=== PATIENT | male | born 1990 | race Caucasian/White ===

== ENCOUNTER 2022-06-21 07:42 | Outpatient (CLI) | payer BC, SELFPAY ==
[2022-06-21 13:37] LABS: Cholesterol* 201 mg/dL (90-199)
[2022-06-21 13:38] LABS: Glucose* 78 mg/dL (60-115); HDL Cholesterol* 74 mg/dL (>=40); LDL Cholesterol Calculated 102 mg/dL (<100); Triglycerides* 124 mg/dL (40-149)
== END 2022-06-21 07:43 | disposition home or self-care (01) ==
PROVIDERS: PCP Family Medicine; Visit Provider Family Medicine
DX: Z13.1 Encounter for screening for diabetes mellitus (principal); Z13.6 Encounter for screening for cardiovascular disorders
CPT/HCPCS: 80061; 82947